=== PATIENT | female | born 1985 | race Caucasian/White ===

== ENCOUNTER → 2020-07-13 | Outpatient (CLI) | payer BC, OTHER ==
[2020-07-13 17:10] VITALS: BP 109/70; PULSE 83; RESP 18; TEMP 98.4; BMI 23.7
--- NOTE | 2020-07-13 18:22 | P.HPBAR ---
Bariatric H&P - History & Physicial H&P Date: 07/13/20 History & Physicial: Visit/CC: initial visit Patient initial contact: Initial weight: Initial weight in pounds: Height: 5 ft 2.5 in Initial BMI: Last weight: Current weight: 59.874 kg Current weight in pounds: 132.00 Current BMI: 23.7 Thornton body weight (based on NIH guidelines): 51.029 kg Excess body weight loss: The patient is a 34 year-old F who presents for Bariatric Assessment. DATE OF SERVICE: 07/13/2020 REASON FOR CONSULTATION: Panniculitis HISTORY OF PRESENT ILLNESS: Cherelle Friend is a 35-year-old female who comes with lifelong morbid obesity. She had bariatric surgery in [place], [place] August 2019. She is 10 months out. She has been following up at [facility] for her bariatric surgery. She had the gastric bypass. Her highest weight was 241 pounds. Her lowest is today 131 pounds. She is looking into skin removal surgery. She has severe ulcerations and rash at the belly button unresponsive to medications. She reports moderate to lower back pain as a result of her pannus. She has not seen a oil well gun perforator operator. Her primary care physician prescribes medications for her skin. She reports being at her goal weight. At height of 5 feet 2.5 inches, her ideal body weight is 135 pounds. Her highest weight is 241 pounds with her body mass index was 43.5. She comes in 132 pounds. Her body mass index is 23.8. Lifetime weight loss of 109 pounds. Percent excess weight loss 103%. PAST MEDICAL HISTORY: 1. Morbid obesity due to excess calories 2. Body mass index of 38.0, initial 3. Gastroesophageal reflux disease 4. Obstructive sleep apnea 5. Mitral valve defect 6. Gestational diabetes 7. Postop nausea and vomiting PAST SURGICAL HISTORY: 1. C section x 3 2. Cholecystectomy 3. Tonsillectomy HOME MEDICATIONS: Home Medications Medication Instructions Recorded Confirmed Multivitamins, Thera [Multivitamin 1 tab PO DAILY 06/21/20 07/13/20 (formulary)] Calcium Carbonate/Vitamin D3 1 each PO DAILY 07/13/20 07/13/20 [Calcium 600-Vit D3 800 Caplet] ALLERGIES: Allergies Allergy/AdvReac Type Severity Reaction Status Date / Time doxycycline Allergy Rash/Hives Verified 07/13/20 17:03 sulfamethoxazole Allergy Rash/Hives Verified 07/13/20 17:03 [From Bactrim] trimethoprim [From Bactrim] Allergy Rash/Hives Verified 07/13/20 17:03 SOCIAL HISTORY: Past tobacco use. FAMILY HISTORY: No family history of ulcerative colitis disease or Crohn's dise ase. Family history of morbid obesity. No lupus in the family. No reports of stomach or esophageal cancer. REVIEW OF ORGAN SYSTEMS: CONSTITUTIONAL: At height of 5 feet 2.5 inches, her ideal body weight is 135 pounds. Her highest weight is 241 pounds with her body mass index was 43.5. She comes in 132 pounds. Her body mass index is 23.8. Lifetime weight loss of 109 pounds. Percent excess weight loss 103%. HEENT: Denies any active troubles with vision or hearing. ENDOCRINE: Denies diabetes. No hypothyroidism. CARDIOVASCULAR: Denies reports of palpitations or heart attacks or chest pain. RESPIRATORY: Denies daytime somnolence. Denies asthma. GASTROINTESTINAL: Denies any bright red blood per rectum. No diarrhea. No constipation. MUSCULOSKELETAL: Has lower back pain and joint pain. Has osteoarthritis of the knees. Has lower back pain. NEURO: No headaches. No seizure disorders. PSYCH: Denies depression. No suicidal ideation. RHEUMATOLOGIC: No lupus. No rheumatoid arthritis. HEMATOLOGIC: Denies any abnormal bleeding or bruising. No personal history of DVTs. SKIN: Has rash. No skin cancer. Has panniculitis PHYSICAL EXAM: VITAL SIGNS: Height 5 foot 2.5 inches, weight 132 pounds. BMI 23.8 Vital Signs Temp 98.4 F 07/13/20 17:02 Pulse 83 07/13/20 17:02 Resp 18 07/13/20 17:02 BP 109/70 07/13/20 17:02 Pulse Ox GENERAL: Well-developed in no acute distress. HEENT: No scleral icterus. Extraocular movements grossly intact. Hears conversational speech. No nasal drainage. NECK: Supple without lymphadenopathy. CHEST: Nonlabored respirations with equal bilateral excursions. CARDIOVASCULAR: Regular rate and regular rhythm. Distal 2+ pulses. ABDOMEN: Soft, nontender, nondistended. No hernia. Skin over 5 pounds. Grade I panniculus MUSCULOSKELETAL: No clubbing, cyanosis. NEURO: No focal or lateralizing signs. Cranial nerves 2 through 12 grossly within normal limits. PSYCH: Appropriate affect. Alert and oriented to person, place and time. SKIN: Good skin turgor. Well perfused. ASSESSMENT: 1. Morbid obesity due to excess calories 2. Body mass index of 38.0, initial 3. Gastroesophageal reflux disease 4. Obstructive sleep apnea 5. Mitral valve defect 6. Gestational diabetes 7. Postop nausea and vomiting 8. Panniculitis PLAN: 1. Recommend a bariatric metabolic panel to evaluate for micro- including mac ronutrient deficiencies. 2. She is still within 1 year of her procedure and will need follow-up after her 1 year anniversary 3. Management of of skin removal surgery also described. 4. Will need images of her pannus. 5. Recommend oil well gun perforator operator and/or primary care provider letter for prior treatment of panniculitis Thank you for this consultation. Past Medical History Past Medical History: GERD/Reflux, Sleep Apnea/CPAP/BIPAP Additional Past Medical History / Comment(s): gestational diabetes; mitral valve defect - no issues since bariatric surgery History of Any Multi-Drug Resistant Organisms: None Reported Past Surgical History: Bariatric Surgery, Section, Cholecystectomy, Tonsillectomy Additional Past Surgical History / Comment(s): c section x 3 Past Anesthesia/Blood Transfusion Reactions: Postoperative Nausea & Vomiting (PONV) Past Psychological History: No Psychological Hx Reported Smoking Status: Never smoker Past Alcohol Use History: None Reported Past Drug Use History: None Reported Surgical - Exam Vital Signs Temp Pulse Resp BP 98.4 F 83 18 109/70 07/13/20 17:02 07/13/20 17:02 07/13/20 17:02 07/13/20 17:02 Bariatric Checklist Checklist: Plan: Checklist: EGD: 1. Hiatal hernia: 2. H. Pylori: HgbA1c: Vitamin D: Smoking: Primary care physician referral: Dr. Malka Lester Psychiatry clearance: Cardiology clearance: Sleep study: Diet journal: VTE risk score: VTE risk level: Rehab needs at discharge:
== END | disposition home or self-care (01) ==
LOC: BARWHC3 16:05
PROVIDERS: ATTEND Surgery Plastic and Reconstructive Surgery
DX: Z48.815 Encounter for surgical aftercare following surgery on the digestive system (principal); Z98.84 Bariatric surgery status
CPT/HCPCS: 99201